=== PATIENT | female | born 1980 | race Caucasian/White ===

== ENCOUNTER 2019-10-04 16:06 | Emergency (ER) | payer OTHER ==
[2019-10-04 17:01] LABS: BLOOD UREA NITROGEN,BUN 14 mg/dL (7.0-18.0); CARBON DIOXIDE,CO2 24.6 mmol/L (21.0-32.0); CHLORIDE,CL 100 mmol/L (98-107); GLUCOSE RANDOM 92 mg/dL (74-106); LIPASE 253 U/L (73-393); POTASSIUM,K 3.7 mmol/L (3.5-5.1); SODIUM,NA 138 mmol/L (136-145)
--- NOTE | 2019-10-04 17:03 | CR ---
Chest: Frontal view of the chest was obtained. Comparison: No prior chest imaging. Heart size and mediastinum are normal. Lungs are clear. Bony structures are unremarkable. Surgical clips are seen within the upper right abdomen presumably from previous cholecystectomy. Impression: 1. Nothing acute is appreciated on frontal chest x-ray. Diagnostic code #2 This report was dictated in [place] Standard Time
--- NOTE | 2019-10-04 19:03 | EDM.PDOC ---
<Tae St - Last Filed: 10/04/19 21:22> ED HPI GENERAL MEDICAL PROBLEM - General Chief Complaint: Chest Pain Stated Complaint: CHEST PAIN Time Seen by Provider: 10/04/19 19:00 - Related Data Allergies Allergy/AdvReac Type Severity Reaction Status Date / Time No Known Allergies Allergy Verified 10/04/19 16:11 Home Meds: Home Meds Migraine Medication 1 tab PO ASDIRECTED PRN 06/03/15 [History] Propranolol [Inderal LA] 80 mg PO DAILY 10/04/19 [History] medroxyPROGESTERone Acetate [Depo-Provera] 150 mg INJECT 10/04/19 [History] Course - Vital Signs Text/Narrative:: The patient's care was handed off to me and it was deemed that she is stable to be discharged home after a second troponin. Vital signs remained unremarkable, she is in a normal sinus rhythm on the monitor and no acute distress and she has had a second negative troponin Patient already has an appointment for an echocardiogram as well as a stress test set up.. Given everything discussed the patient is stable for discharge and close outpatient follow-up. Last Recorded V/S: Last Vital Signs Temp 36.6 C 10/04/19 21:10 Pulse 71 10/04/19 21:41 Resp 20 10/04/19 21:41 BP 121/74 10/04/19 21:41 Pulse Ox 99 10/04/19 21:41 - Orders/Labs/Meds Orders: Active Orders 24 hr Category Date Time Status Cardiac Monitoring [RC] . DIRECTED Care 10/04/19 16:22 Active EKG 12 Lead [EKG Documentation Completion] [RC] STAT Care 10/04/19 16:20 Active CULTURE URINE [RM] Stat Lab 10/04/19 18:39 Received Labs: Laboratory Tests 10/04/19 10/04/19 10/04/19 Range/Units 16:30 16:30 18:39 WBC 8.02 (4.0-11.0) K/uL RBC 4.42 (4.30-5.90) M/uL Hgb 15.2 (12.0-16.0) g/dL Hct 43.8 (36.0-46.0) % MCV 99.1 H (80.0-98.0) fL MCH 34.4 H (27.0-32.0) pg MCHC 34.7 (31.0-37.0) g/dL RDW Std Deviation 41.6 (28.0-62.0) fl RDW Coeff of Kalpesh 12 (11.0-15.0) % Plt Count 300 (150-400) K/uL MPV 9.50 (7.40-12.00) fL Neut % (Auto) 58.6 (48.0-80.0) % Lymph % (Auto) 33.2 (16.0-40.0) % [place] % (Auto) 6.9 (0.0-15.0) % Eos % (Auto) 0.7 (0.0-7.0) % Baso % (Auto) 0.6 (0.0-1.5) % Neut # (Auto) 4.7 (1.4-5.7) K/uL Lymph # (Auto) 2.7 H (0.6-2.4) K/uL [place] # (Auto) 0.6 (0.0-0.8) K/uL Eos # (Auto) 0.1 (0.0-0.7) K/uL Baso # (Auto) 0.1 (0.0-0.1) K/uL Nucleated RBC % 0.0 /100WBC Nucleated RBCs # 0 K/uL Sodium 138 (136-145) mmol/L Potassium 3.7 (3.5-5.1) mmol/L Chloride 100 (98-107) mmol/L Carbon Dioxide 24.6 (21.0-32.0) mmol/L BUN 14 (7.0-18.0) mg/dL Creatinine 0.9 (0.6-1.0) mg/dL Est Cr Clr Drug Dosing 74.77 mL/min Estimated GFR (MDRD) > 60.0 ml/min Glucose 92 (74-106) mg/dL Calcium 9.2 (8.5-10.1) mg/dL Total Bilirubin 1.1 H (0.2-1.0) mg/dL AST 60 H (15-37) IU/L ALT 85 H (14-63) IU/L Alkaline Phosphatase 86 (46-116) U/L Creatine Kinase 134 (26-308) U/L Troponin I < 0.050 (0.000-0.056) ng/mL Total Protein 9.0 H (6.4-8.2) g/dL Albumin 4.5 (3.4-5.0) g/dL Globulin 4.5 H (2.6-4.0) g/dL Albumin/Globulin Ratio 1.0 (0.9-1.6) Amylase 84 (25-115) U/L Lipase 253 (73-393) U/L Urine Color YELLOW Urine Appearance HAZY Urine pH 5.5 (5.0-8.0) Ur Specific Metter 1.010 (1.001-1.035) Urine Protein NEGATIVE (NEGATIVE) mg/dL Urine Glucose (UA) NEGATIVE (NEGATIVE) mg/dL Urine Ketones 15 H (NEGATIVE) mg/dL Urine Occult Blood NEGATIVE (NEGATIVE) Urine Nitrite NEGATIVE (NEGATIVE) Urine Bilirubin NEGATIVE (NEGATIVE) Urine Urobilinogen 0.2 (<2.0) EU/dL Ur Leukocyte Esterase TRACE H (NEGATIVE) Urine RBC 0-3 (0-2/HPF) Urine WBC 1-4 (0-5/HPF) Ur Epithelial Cells FEW (NONE-FEW) Urine Bacteria FEW (NEGATIVE) 10/04/19 Range/Units 19:46 WBC (4.0-11.0) K/uL RBC (4.30-5.90) M/uL Hgb (12.0-16.0) g/dL Hct (36.0-46.0) % MCV (80.0-98.0) fL MCH (27.0-32.0) pg MCHC (31.0-37.0) g/dL RDW Std Deviation (28.0-62.0) fl RDW Coeff of Kalpesh (11.0-15.0) % Plt Count (150-400) K/uL MPV (7.40-12.00) fL Neut % (Auto) (48.0-80.0) % Lymph % (Auto) (16.0-40.0) % [place] % (Auto) (0.0-15.0) % Eos % (Auto) (0.0-7.0) % Baso % (Auto) (0.0-1.5) % Neut # (Auto) (1.4-5.7) K/uL Lymph # (Auto) (0.6-2.4) K/uL [place] # (Auto) (0.0-0.8) K/uL Eos # (Auto) (0.0-0.7) K/uL Baso # (Auto) (0.0-0.1) K/uL Nucleated RBC % /100WBC Nucleated RBCs # K/uL Sodium (136-145) mmol/L Potassium (3.5-5.1) mmol/L Chloride (98-107) mmol/L Carbon Dioxide (21.0-32.0) mmol/L BUN (7.0-18.0) mg/dL Creatinine (0.6-1.0) mg/dL Est Cr Clr Drug Dosing mL/min Estimated GFR (MDRD) ml/min Glucose (74-106) mg/dL Calcium (8.5-10.1) mg/dL Total Bilirubin (0.2-1.0) mg/dL AST (15-37) IU/L ALT (14-63) IU/L Alkaline Phosphatase (46-116) U/L Creatine Kinase (26-308) U/L Troponin I < 0.050 (0.000-0.056) ng/mL Total Protein (6.4-8.2) g/dL Albumin (3.4-5.0) g/dL Globulin (2.6-4.0) g/dL Albumin/Globulin Ratio (0.9-1.6) Amylase (25-115) U/L Lipase (73-393) U/L Urine Color Urine Appearance Urine pH (5.0-8.0) Ur Specific Metter (1.001-1.035) Urine Protein (NEGATIVE) mg/dL Urine Glucose (UA) (NEGATIVE) mg/dL Urine Ketones (NEGATIVE) mg/dL Urine Occult Blood (NEGATIVE) Urine Nitrite (NEGATIVE) Urine Bilirubin (NEGATIVE) Urine Urobilinogen (<2.0) EU/dL Ur Leukocyte Esterase (NEGATIVE) Urine RBC (0-2/HPF) Urine WBC (0-5/HPF) Ur Epithelial Cells (NONE-FEW) Urine Bacteria (NEGATIVE) Departure - Departure Time of Disposition: 21:24 Disposition: Home, Self-Care 01 Condition: Good Clinical Impression: Chest pain Instructions: Nonspecific Chest Pain, [id number] Referrals: PCP,None [Primary Care Provider] - Forms: ED Department Discharge Care Plan Goals: The following information is given to patients seen in the emergency department who are being discharged to home. This information is to outline your options for follow-up care. We provide all patients seen in our emergency department with a follow-up referral. The need for follow-up, as well as the timing and circumstances, are variable depending upon the specifics of your emergency department visit. If you don't have a primary care physician on staff, we will provide you with a referral. We always advise you to contact your personal physician following an emergency department visit to inform them of the circumstance of the visit and for follow-up with them and/or the need for any referrals to a consulting specialist. The emergency department will also refer you to a specialist when appropriate. This referral assures that you have the opportunity for follow-up care with a specialist. All of these measure are taken in an effort to provide you with optimal care, which includes your follow-up. Under all circumstances we always encourage you to contact your private physician who remains a resource for coordinating your care. When calling for follow-up care, please make the office aware that this follow-up is from your recent emergency room visit. If for any reason you are refused follow-up, please contact the [facility] Department at and asked to speak to the emergency department charge nurse. [facility] [address] [place], [place] [id number] [place] [address] Sepsis Event Note - Focused Exam Vital Signs: Vital Signs Temp Pulse Resp BP Pulse Ox 10/04/19 21:41 71 20 121/74 99 10/04/19 21:10 36.6 C 74 18 127/82 100 Date Exam was Performed: 10/04/19 Time Exam was Performed: 21:22 - My Orders Last 24 Hours: My Active Orders 10/04/19 16:20 EKG 12 Lead [EKG Documentation Completion] [RC] STAT 10/04/19 16:22 Cardiac Monitoring [RC] . DIRECTED 10/04/19 18:39 CULTURE URINE [RM] Stat - Assessment/Plan Last 24 Hours: My Active Orders 10/04/19 16:20 EKG 12 Lead [EKG Documentation Completion] [RC] STAT 10/04/19 16:22 Cardiac Monitoring [RC] . DIRECTED 10/04/19 18:39 CULTURE URINE [RM] Stat <Kingsley Bruner - Last Filed: 10/05/19 07:51> ED HPI GENERAL MEDICAL PROBLEM - General Source of Information: Reports: Patient History Limitations: Reports: No Limitations - History of Present Illness INITIAL COMMENTS - FREE TEXT/NARRATIVE: Patient is 39-year-old female with past medical history of celiac disease presenting with chief complaint chest pain. Patient states the chest pain started just prior to arrival. Patient reports several months history of similar past chest pain however this episode was more severe. Patient states the episode was substernal nonradiating associated with shortness of breath. Patient symptoms lasted about an hour before resolving spontaneously. Patient denies any recent illnesses, fevers, chills, lower extremity swelling. Patient is no prior history of DVT or PE. Patient denies any recent travels or prolonged immobilizations. Patient is currently undergoing work-up for this chest pain with primary care physician and has outpatient echocardiogram scheduled this week. Pmhx: Celiac disease Pshx: None Family Hx: noncontributory Smoking history? no Etoh use? none Drug use? none In addition to that documented in the HPI above, the additional ROS was obtained : Constitutional: Denies fevers or chills Eyes: Denies vision changes ENMT: Denies sore throat CV: Per HPI Resp: Denies SOB GI: Denies vomiting or diarrhea : Denies painful urination MSK: Denies recent trauma Skin: Denies new rashes Neuro: Denies new numbness or tingling or weakness Endocrine: Denies unexpected weight loss Heme: Denies bleeding disorders I have reviewed the triage vital signs Const: Well nourished, well developed, appears stated age Eyes: PERRL, no conjunctival injection HENT: NCAT, Neck supple without meningismus CV: RRR, Warm, well-perfused extremities RESP: CTAB, Unlabored respiratory effort GI: soft, non-tender, non-distended, no masses MSK: No gross deformities appreciated Skin: Warm, dry. No rashes Neuro: Alert, customizer II-XII grossly intact. Sensation and motor function of extremities grossly intact. Psych: Appropriate mood and affect Assessment and plan: Patient is a 39-year-old female with a chief complaint of chest pain. Patient has EKG changes with a Q waves in the leads V1 V2 but no ST changes. Patient initial troponin was negative and heart score is 3. Patient require repeat troponin. Patient is PERC negative. Repeat troponin is negative and there are no further EKG changes report recurrent chest pain patient will be discharged home. Patient signed out to overnight attending for follow-up troponin. Chest Pain Score (Numeric/FACES): 4 Past Medical History Cardiovascular History: Reports: Hypertension - Infectious Disease History Infectious Disease History: Reports: None - Past Surgical History GI Surgical History: Reports: Appendectomy, Cholecystectomy Social & Family History - Family History Family Medical History: Noncontributory - Tobacco Use Smoking Status *Q: Never Smoker - Caffeine Use Caffeine Use: Reports: Coffee - Recreational Drug Use Recreational Drug Use: No ED ROS GENERAL - Review of Systems Review Of Systems: See Below ED EXAM, GENERAL - Physical Exam Exam: See Below Sepsis Event Note - Evaluation Sepsis Screening Result: No Definite Risk - Focused Exam Date Exam was Performed: 10/05/19 Time Exam was Performed: 07:51
[2019-10-04 21:42] VITALS: BP 121/74; PULSE 71
== END 2019-10-04 21:42 | disposition home or self-care (01) ==
LOC: MW.ED 16:06
DX: R07.2 Precordial pain (principal); I10 Essential (primary) hypertension
CPT/HCPCS: 71045; 71045-26; 80053; 81001; 82150; 82550; 83690; 84484; 85025; 87086; 93005; 99284; 99285-25

== ENCOUNTER 2020-07-26 11:43 | Day surgery (SDC) | payer OTHER ==
[2020-07-26] MEDS ORDERED: Iopamidol 200-M 10 ML vial ITHECAL ONE (13:00)
[2020-07-26] MEDS ORDERED: Betamethasone Acetate/Betamethasone Sod Phosphate 30 MG/5 ML MDV EPIDUR ONE (13:00)
[2020-07-26] MEDS ORDERED: Lidocaine 2% 5 ML SDV INJECT ONE (13:00)
[2020-07-26] MEDS ORDERED: Ropivacaine 0.5% 5 MG/ML 30 ML SDV INJECT ONE (13:00)
--- NOTE | 2020-07-26 16:52 | OR ---
SURGEON: Reshma Moya D.O. DATE OF PROCEDURE: 07/26/2020 PRIMARY SURGEON: Reshma Moya DO PREOPERATIVE DIAGNOSES: 1. Lumbar degenerative disk disease, L4-5 and L5-S1. 2. Lumbosacral radiculopathy, right lower extremity, L5 and S1. POSTOPERATIVE DIAGNOSES: 1. Lumbar degenerative disk disease, L4-5 and L5-S1. 2. Lumbosacral radiculopathy, right lower extremity, L5 and S1. ASSISTANTS: OR staff present: 1. Patrick Boateng RN. 2. Ryan Gant RN. 3. Patrick Jose. PROCEDURES PERFORMED: 1. Right L5 transforaminal epidural steroid injection. 2. Right S1 transforaminal epidural steroid injection. 3. Fluoroscopic guidance for needle placement. 4. Local with oral Valium for sedation. SCREENING QUESTIONS: The patient answered "no" to all of the following questions: 1. Are you allergic to iodine, Betadine or latex? 2. Do you have a bleeding disorder? 3. Do you have any joint replacements, heart valve replacements, or a pacemaker? 4. Are you allergic to anti-inflammatories or blood thinners? 5. Do you have any current local or systemic infections? DESCRIPTION OF PROCEDURES: The patient had the procedure thoroughly explained including risks, benefits and alternatives. Consent was signed in my clinic indicating understanding and willingness to proceed. The patient presented to [facility] where the patient was escorted to the dressing room to disrobe and change into a hospital gown. Preoperative vital signs were taken and stable. The patient reported that Valium was taken prior to the procedure. The patient was brought to the procedure room and placed in the prone position on the table. A pillow was placed under the abdomen in order to flatten the lumbar lordosis. The back was prepped with ChloraPrep and sterilely draped. All personnel in the operating room were dressed in appropriate attire including surgical scrubs, head and shoe covers. This was to ensure sterility while in the treatment room. During the time fluoroscopy was in use, all personnel in the operating room wore lead urban with thyroid collars. Sterile technique was used during the procedure. The fluoroscope was placed for the right L5 transforaminal epidural steroid injection. There was no sign of infection at the skin site for needle insertion. The skin was anesthetized with 2% lidocaine with a 27 gauge 1-1/2 inch needle. Then, a 22 gauge 3-1/2 inch spinal needle, advanced to the right L5 foarmen. Under direct fluoroscopic guidance needle position was verified in three views; AP, oblique and lateral, with 0.2 cubic centimeters increments of Isovue-200 dye. No intravascular flow pattern was observed under live fluoroscopy.Then 6 milligrams of Celestone and local was slowly injected after negative aspiration of heme, cerebrospinal fluid and no paresthesias were noted. The needle was cleared prior to removal from the skin. The procedure was then repeated as above for the right S1 transforaminal epidural steroid injection. No adverse reactions were noted. The patient was brought to the recovery room awake and in good condition by my staff. The patient was monitored and discharge instructions were given after a brief stay in the recovery area. Both oral and written discharge and follow up instructions were given. The patient will follow up in the clinic in 3-4 weeks post procedure to evaluate the efficacy. The patient verbalized understanding including understanding of those signs and symptoms that would require emergency care and knows how to contact the office if there are any problems or questions in the meantime. PREOPERATIVE PAIN: 5/10. POSTOPERATIVE PAIN: /10. FOLLOWUP: In the Pain Clinic in 3 weeks. ALVIN / RELL /[id number] VALENTINA
== END 2020-07-26 13:42 ==
LOC: MW.SDS 11:43
PROVIDERS: ATTEND Anesthesiology
DX: M51.16 Intervertebral disc disorders with radiculopathy, lumbar region (principal); M51.17 Intervertebral disc disorders with radiculopathy, lumbosacral region; J45.909 Unspecified asthma, uncomplicated; G43.109 Migraine with aura, not intractable, without status migrainosus; I10 Essential (primary) hypertension; M47.26 Other spondylosis with radiculopathy, lumbar region; M79.18 Myalgia, other site; M53.3 Sacrococcygeal disorders, not elsewhere classified; M43.17 Spondylolisthesis, lumbosacral region; M43.16 Spondylolisthesis, lumbar region; Z88.8 Allergy status to other drugs, medicaments and biological substances; Z98.890 Other specified postprocedural states; Z79.899 Other long term (current) drug therapy
CPT/HCPCS: J0702

== ENCOUNTER 2020-09-29 05:29 | Emergency (ER) | payer OTHER ==
--- NOTE | 2020-09-29 05:45 | EDM.PDOC ---
ED HPI GENERAL MEDICAL PROBLEM - General Chief Complaint: Skin Complaint Stated Complaint: VIOLETA BITE RIGHT HAND Time Seen by Provider: 09/29/20 05:33 - History of Present Illness INITIAL COMMENTS - FREE TEXT/NARRATIVE: 40-year-old female with a history of hypertension who is presenting with a cat bite to the dorsal aspect of the third MCP joint yesterday persistent pain and swelling. No fevers no chills otherwise feels well. Right Finger-Middle Pain Score (Numeric/FACES): 7 - Related Data Allergies Allergy/AdvReac Type Severity Reaction Status Date / Time No Known Allergies Allergy Verified 10/04/19 16:11 Home Meds: Home Meds Propranolol [Inderal LA] 80 mg PO DAILY 10/04/19 [History] medroxyPROGESTERone Acetate [Depo-Provera] 150 mg INJECT ASDIRECTED 10/04/19 [History] Amoxicillin/Clavulanate K [Augmentin 875-125 MG] 1 tab PO BID 7 Days #14 tablet 09/29/20 [Rx] Past Medical History Cardiovascular History: Reports: Hypertension - Infectious Disease History Infectious Disease History: Reports: None - Past Surgical History GI Surgical History: Reports: Appendectomy, Cholecystectomy Social & Family History - Family History Family Medical History: No Pertinent Family History - Caffeine Use Caffeine Use: Reports: Coffee ED ROS GENERAL - Review of Systems Review Of Systems: See Below Free Text/Narrative/Comment: General: No fever. Skin: Per HPI Musculoskeletal: Per HPI Neurologic: No headache. ED EXAM, SKIN/RASH Exam: See Below Text/Narrative:: General Appearance: No acute distress, appears comfortable Skin: Mild swelling and erythema to the dorsal aspect of the third MCP of the right hand range of motion limited somewhat by pain but the hand is fully neurovascularly intact there is no findings on the palmar aspect of the hand or fingers that would suggest any type of tenosynovitis HEENT: Normocephalic/atraumatic, sclera anicteric, mucous membranes moist Neurologic: Awake, alert, no obvious deficits, moving all extremities Psychiatric: Appropriate, cooperative Course - Vital Signs Last Recorded V/S: Last Vital Signs Temp 98.3 F 09/29/20 05:39 Pulse 100 09/29/20 05:39 Resp 16 09/29/20 05:39 BP 121/92 H 09/29/20 05:39 Pulse Ox 97 09/29/20 05:39 - Orders/Labs/Meds Orders: Active Orders 24 hr Category Date Time Status Hand 2V Rt [CR] Stat Exams 09/29/20 05:42 Ordered Meds: Medications Discontinued Medications Generic Name Dose Route Start Last Admin Trade Name Kevin PRN Reason Stop Dose Admin Amoxicillin/Clavulanate Potassium 1 tab 09/29/20 06:22 09/29/20 06:39 Augmentin 875 Mg/125 Mg PO 09/29/20 06:23 1 tab ONETIME ONE Administration Ibuprofen 600 mg 09/29/20 06:43 Motrin PO 09/29/20 06:44 ONETIME ONE Departure - Departure Time of Disposition: 06:45 Disposition: Home, Self-Care 01 Condition: Good Clinical Impression: Cat bite of right hand - Discharge Information *PRESCRIPTION DRUG MONITORING PROGRAM REVIEWED*: Not Applicable *COPY OF PRESCRIPTION DRUG MONITORING REPORT IN PATIENT AMIRAH: Not Applicable Prescriptions: Amoxicillin/Clavulanate K [Augmentin 875-125 MG] 1 tab PO BID 7 Days #14 tablet Instructions: Animal Bite, Adult, [id number] Referrals: Jaky Santos PA [Primary Care Provider] - Forms: ED Department Discharge Additional Instructions: Please be sure to take the entire course of antibiotics. The following information is given to patients seen in the emergency department who are being discharged to home. This information is to outline your options for follow-up care. We provide all patients seen in our emergency department with a follow-up referral. The need for follow-up, as well as the timing and circumstances, are variable depending upon the specifics of your emergency department visit. If you don't have a primary care physician on staff, we will provide you with a referral. We always advise you to contact your personal physician following an emergency department visit to inform them of the circumstance of the visit and for follow-up with them and/or the need for any referrals to a consulting spe cialist. The emergency department will also refer you to a specialist when appropriate. This referral assures that you have the opportunity for follow-up care with a specialist. All of these measure are taken in an effort to provide you with optimal care, which includes your follow-up. Under all circumstances we always encourage you to contact your private physician who remains a resource for coordinating your care. When calling for follow-up care, please make the office aware that this follow-up is from your recent emergency room visit. If for any reason you are refused follow-up, please contact the [facility] Emergency Department at and asked to speak to the emergency department charge nurse. Sepsis Event Note (ED) - Focused Exam Vital Signs: Vital Signs Temp Pulse Resp BP Pulse Ox 09/29/20 05:39 98.3 F 100 16 121/92 H 97 - My Orders Last 24 Hours: My Active Orders 09/29/20 05:42 Hand 2V Rt [CR] Stat - Assessment/Plan Last 24 Hours: My Active Orders 09/29/20 05:42 Hand 2V Rt [CR] Stat Assessment:: 40-year-old female presenting with cat bite to the right hand no sign of flexor tenosynovitis x-ray to rule out retained foreign body followed by discharged with Augmentin. No indication for rabies prophylaxis or further testing or treatment. 0645: X-ray without any retained foreign body. Patient provided with her first dose of Augmentin here. The remainder was sent to the pharmacy return precaution discussed and understood. Patient felt safe for discharge.
[2020-09-29] MEDS ORDERED: Amoxicillin/Clavulanate K 875-125 MG Tab PO ONE (06:22)
[2020-09-29] MEDS ORDERED: Ibuprofen 600 MG Tab PO ONE (06:43)
[2020-09-29 06:51] VITALS: BP 116/76; PULSE 85
--- NOTE | 2020-09-29 07:03 | CR ---
Indication: Cat bite to 3rd metacarpal Technique: Two-views of the right hand Findings : There is normal alignment. No fractures. No acute osseous abnormalities. No radiopaque foreign body. Dictated by Rosa Salmeron MD @ Sep 29 2020 7:00AM Signed by Dr. Rosa Salmeron @ Sep 29 2020 7:01AM
== END 2020-09-29 06:50 | disposition home or self-care (01) ==
LOC: MW.ED 05:29
DX: S61.451A Open bite of right hand, initial encounter (principal); I10 Essential (primary) hypertension; W55.01XA Bitten by cat, initial encounter
CPT/HCPCS: 73120; 99283; A9270; 99282

== ENCOUNTER 2020-10-09 10:35 | Day surgery (SDC) | payer OTHER ==
[2020-10-09] MEDS ORDERED: Betamethasone Acetate/Betamethasone Sod Phosphate 30 MG/5 ML MDV EPIDUR ONE (12:30)
[2020-10-09] MEDS ORDERED: Lidocaine 2% 5 ML SDV INJECT ONE (12:30)
[2020-10-09] MEDS ORDERED: Ropivacaine 0.5% 5 MG/ML 30 ML SDV INJECT ONE (12:30)
[2020-10-09] MEDS ORDERED: Iopamidol 200-M 10 ML vial ITHECAL ONE (12:30)
--- NOTE | 2020-10-09 18:43 | OR ---
SURGEON: Reshma Moya D.O. DATE OF PROCEDURE: 10/09/2020 PRIMARY SURGEON: Reshma Moya D.O. ASSISTANTS: OR staff present: 1. Primo Bradshaw RT. 2. Ryan Gant RN. PREOPERATIVE DIAGNOSES: 1. Lumbar L5-S1 disk protrusion. 2. Right L5-S1 radiculopathy. POSTOPERATIVE DIAGNOSES: 1. Lumbar L5-S1 disk protrusion. 2. Right L5-S1 radiculopathy. PROCEDURES PERFORMED: 1. Right L5 transforaminal epidural steroid injection. 2. Right S1 transforaminal epidural steroid injection. 3. Fluoroscopic guidance for needle placement. 4. Local with oral Valium for sedation. SCREENING QUESTIONS: The patient answered "no" to all of the following questions: 1. Are you allergic to iodine, Betadine or latex? 2. Do you have a bleeding disorder? 3. Do you have any joint replacements, heart valve replacements, or a pacemaker? 4. Are you allergic to anti-inflammatories or blood thinners? 5. Do you have any current local or systemic infections? DESCRIPTION OF PROCEDURE: The patient had the procedure thoroughly explained including risks, benefits and alternatives. Consent was signed in my clinic indicating understanding and willingness to proceed. The patient presented to [facility] [place] where the patient was escorted to the dressing room to disrobe and change into a hospital gown. Preoperative vital signs were taken and stable. The patient reported that Valium was taken prior to the procedure. The patient was brought to the procedure room and placed in the prone position on the table. A pillow was placed under the abdomen in order to flatten the lumbar lordosis. The back was prepped with ChloraPrep and sterilely draped. All personnel in the operating room were dressed in appropriate attire including surgical scrubs, head and shoe covers. This was to ensure sterility while in the treatment room. During the time fluoroscopy was in use, all personnel in the operating room wore lead urban with thyroid collars. Sterile technique was used during the procedure. The fluoroscope was placed for the right L5 transforaminal epidural steroid injection. There was no sign of infection at the skin site for needle insertion. The skin was anesthetized with 2% lidocaine with a 27 gauge 1-1/2 inch needle. Then a 22 gauge 3-1/2 inch spinal needle, advanced to the right L5 foramen. Under direct fluoroscopic guidance needle position was verified in three views; AP, oblique and lateral, with 0.2 cubic centimeters increments of Isovue-200 dye. No intravascular flow pattern was observed under live fluoroscopy.Then 6 milligrams of Celestone and local was slowly injected after negative aspiration of heme, cerebrospinal fluid and no paresthesias were noted. The needle was cleared prior to removal from the skin. The procedure was repeated as above for the right S1 transforaminal epidural. No adverse reactions were noted. The patient was brought to the recovery room awake and in good condition by my staff. The patient was monitored and discharge instructions were given after a brief stay in the recovery area. Both oral and written discharge and follow up instructions were given. The patient will follow up in the clinic in 3-4 weeks post procedure to evaluate the efficacy. The patient verbalized understanding including understanding of those signs and symptoms that would require emergency care and knows how to contact the office if there are any problems or questions in the meantime. PREOPERATIVE PAIN: 5+/10. POSTOPERATIVE PAIN: 0/10. FOLLOWUP: In the Pain Clinic in 1 month. AVLIN / RELL /[id number] [place]
== END 2020-10-09 12:51 ==
LOC: MW.SDS 10:35
PROVIDERS: ATTEND Anesthesiology
DX: G89.29 Other chronic pain (principal); M51.17 Intervertebral disc disorders with radiculopathy, lumbosacral region; M51.16 Intervertebral disc disorders with radiculopathy, lumbar region; M43.17 Spondylolisthesis, lumbosacral region; M47.26 Other spondylosis with radiculopathy, lumbar region; M53.3 Sacrococcygeal disorders, not elsewhere classified; J45.909 Unspecified asthma, uncomplicated; I10 Essential (primary) hypertension; Z88.8 Allergy status to other drugs, medicaments and biological substances; Z79.899 Other long term (current) drug therapy; Z90.49 Acquired absence of other specified parts of digestive tract; Z86.69 Personal history of other diseases of the nervous system and sense organs

== ENCOUNTER 2020-12-04 10:47 | Day surgery (SDC) | payer OTHER ==
[2020-12-04] MEDS ORDERED: Lidocaine 2% 5 ML SDV INJECT ONE (12:20)
[2020-12-04] MEDS ORDERED: Ropivacaine 0.5% 5 MG/ML 30 ML SDV INJECT ONE (12:30)
[2020-12-04] MEDS ORDERED: Iopamidol 200-M 10 ML vial ITHECAL ONE (12:30)
[2020-12-04] MEDS ORDERED: Betamethasone Acetate/Betamethasone Sod Phosphate 30 MG/5 ML MDV EPIDUR ONE (12:30)
--- NOTE | 2020-12-04 20:11 | OR ---
SURGEON: Reshma Moya D.O. DATE OF PROCEDURE: 12/04/2020 PRIMARY SURGEON: Reshma Moya D.O. ASSISTANTS: OR staff present: 1. Ryan Gant RN. 2. Keara Bazan RN. 3. Primo Bradshaw RT. PREOPERATIVE DIAGNOSES: 1. Lumbar degenerative disk disease. 2. Right L5-S1 herniated disk. 3. Right L5-S1 radiculopathy. POSTOPERATIVE DIAGNOSES: 1. Lumbar degenerative disk disease. 2. Right L5-S1 herniated disk. 3. Right L5-S1 radiculopathy. PROCEDURES PERFORMED: 1. Right L5 transforaminal epidural steroid. 2. Right S1 transforaminal epidural steroid. 3. Fluoroscopic guidance for needle placement. 4. Local with oral Valium for sedation. SCREENING QUESTIONS: The patient answered "no" to all of the following questions: 1. Are you allergic to iodine, Betadine or latex? 2. Do you have a bleeding disorder? 3. Do you have any joint replacements, heart valve replacements, or a pacemaker? 4. Are you allergic to anti-inflammatories or blood thinners? 5. Do you have any current local or systemic infections? DESCRIPTION OF PROCEDURE: The patient had the procedure thoroughly explained including risks, benefits and alternatives. Consent was signed in my clinic indicating understanding and willingness to proceed. The patient presented to [facility] [place] where the patient was escorted to the dressing room to disrobe and change into a hospital gown. Preoperative vital signs were taken and stable. The patient reported that Valium was taken prior to the procedure. The patient was brought to the procedure room and placed in the prone position on the table. A pillow was placed under the abdomen in order to flatten the lumbar lordosis. The back was prepped with ChloraPrep and sterilely draped. All personnel in the operating room were dressed in appropriate attire including surgical scrubs, head and shoe covers. This was to ensure sterility while in the treatment room. During the time fluoroscopy was in use, all personnel in the operating room wore lead urban with thyroid collars. Sterile technique was used during the procedure. The fluoroscope was placed for the right L5 transforaminal epidural steroid injection. There was no sign of infection at the skin site for needle insertion. The skin was anesthetized with 2% lidocaine with a 27 gauge 1-1/2 inch needle. Then a 22 gauge 3-1/2 inch spinal needle, advanced to the right L5 foramen. Under direct fluoroscopic guidance needle position was verified in three views; AP, oblique and lateral, with 0.2 cubic centimeters increments of Isovue-200 dye. No intravascular flow pattern was observed under live fluoroscopy.Then 6 milligrams of Celestone and local was slowly injected after negative aspiration of heme, cerebrospinal fluid and no paresthesias were noted. The needle was cleared prior to removal from the skin.No adverse reactions were noted. The procedure was repeated as above for the right S1 transforaminal injection without complications The patient was brought to the recovery room awake and in good condition by my staff. The patient was monitored and discharge instructions were given after a brief stay in the recovery area. Both oral and written discharge and follow up instructions were given. The patient will follow up in the clinic in 3-4 weeks post procedure to evaluate the efficacy. The patient verbalized understanding including understanding of those signs and symptoms that would require emergency care and knows how to contact the office if there are any problems or questions in the meantime. PREOPERATIVE PAIN: 5/10. POSTOPERATIVE PAIN: /10. PLAN: Follow up in the pain clinic in 3 weeks. ALVIN / RELL /[id number] [place]
== END 2020-12-04 13:26 ==
LOC: MW.SDS 10:47
PROVIDERS: ATTEND Anesthesiology
DX: M51.16 Intervertebral disc disorders with radiculopathy, lumbar region (principal); M51.17 Intervertebral disc disorders with radiculopathy, lumbosacral region; M47.26 Other spondylosis with radiculopathy, lumbar region; M79.18 Myalgia, other site; M53.3 Sacrococcygeal disorders, not elsewhere classified; M43.17 Spondylolisthesis, lumbosacral region; Z88.8 Allergy status to other drugs, medicaments and biological substances; Z79.899 Other long term (current) drug therapy; Z90.49 Acquired absence of other specified parts of digestive tract; I10 Essential (primary) hypertension; J45.909 Unspecified asthma, uncomplicated
CPT/HCPCS: 64483; J0702; J2795; Q9966

== ENCOUNTER 2022-01-31 20:07 | Emergency (ER) | payer OTHER | END 2022-01-31 21:30 | disposition left against medical advice (07) | LOC: MW.ED 20:07 | DX: Z53.21 Procedure and treatment not carried out due to patient leaving prior to being seen by health care provider (principal) ==

== ENCOUNTER 2022-02-28 10:34 | Day surgery (SDC) | payer OTHER ==
[~2022-02-28 10:34] MED LIST: Lactated Ringers 1,000 ML IV SCH
[2022-02-28] MEDS ORDERED: Propofol 200 MG/20 ML SDV ONE ×2 (11:26→14:05)
[2022-02-28] MEDS ORDERED: fentaNYL 100 MCG/2 ML SDV ONE (11:26)
[2022-02-28] MEDS ORDERED: Midazolam 1 MG/ML 2 ML SDV ONE (11:27)
[2022-02-28] MEDS ORDERED: HYDROmorphone 2 MG/ML Syringe ONE (11:55)
[2022-02-28] MEDS ORDERED: Lactated Ringers 1,000 ML IV SCH (14:30)
[2022-02-28 15:00] VITALS: BP 94/57; PULSE 62
== END 2022-02-28 15:01 | disposition home or self-care (01) ==
LOC: MW.SDS 10:34
PROVIDERS: ATTEND Surgery
DX: K29.50 Unspecified chronic gastritis without bleeding (principal); K31.89 Other diseases of stomach and duodenum; K20.90 Esophagitis, unspecified without bleeding; K44.9 Diaphragmatic hernia without obstruction or gangrene; K90.0 Celiac disease; J45.909 Unspecified asthma, uncomplicated; I10 Essential (primary) hypertension; G43.909 Migraine, unspecified, not intractable, without status migrainosus; M79.18 Myalgia, other site; Z90.49 Acquired absence of other specified parts of digestive tract; Z98.890 Other specified postprocedural states; Z88.8 Allergy status to other drugs, medicaments and biological substances; Z79.899 Other long term (current) drug therapy
CPT/HCPCS: 43239; 45378; 81025; J1170; J2250; J2370; J2704; J3010; J7120; 00813

== ENCOUNTER 2023-09-19 20:44 | Emergency (ER) | payer OTHER ==
[2023-09-19] MEDS: Lidocaine 1% 5 ML VIAL INJECT ONE (21:26)
[2023-09-19] MEDS: Diphtheria,Pertussis(Acell),Tetanus Vaccine 0.5 ML Syringe IM ONE (21:26)
[2023-09-19] MEDS: Bacitracin Oint 1 GM U/D Packet TOP STA (22:01)
[2023-09-19] MEDS: Cephalexin 500 MG Cap PO ONE (23:21)
[2023-09-19 23:34] VITALS: BP 143/90; PULSE 91
== END 2023-09-19 23:34 | disposition home or self-care (01) ==
LOC: MW.ED 20:44
DX: S01.81XA Laceration without foreign body of other part of head, initial encounter (principal); F10.129 Alcohol abuse with intoxication, unspecified; I10 Essential (primary) hypertension; J45.909 Unspecified asthma, uncomplicated; Z79.899 Other long term (current) drug therapy; Z88.8 Allergy status to other drugs, medicaments and biological substances; Z90.49 Acquired absence of other specified parts of digestive tract; Z23 Encounter for immunization; W18.30XA Fall on same level, unspecified, initial encounter; W22.8XXA Striking against or struck by other objects, initial encounter
CPT/HCPCS: 12015; 90471; 90715; 99283; A9270; J3490